=== PATIENT | female | born 1970 | race American Indian/Alaskan Native ===

== ENCOUNTER 2018-11-20 17:13 | Emergency (ER) | payer SELFPAY ==
[2018-11-20 18:12] VITALS: BP 135/88
--- NOTE | 2018-11-20 18:13 | Event Note ---
ED Screening Note Date of service: 11/20/18 Time: 18:12 ED Screening Note: 47 y o f presents with blood and protein in urine and vaginal irritation was at a clinic for drug testing and was given this information This initial assessment/diagnostic orders/clinical plan/treatment(s) is/are subject to change based on patients health status, clinical progression and re- assessment by fellow clinical providers in the ED. Further treatment and workup at subsequent clinical providers discretion. Patient/guardian urged not to elope from the ED as their condition may be serious if not clinically assessed and managed. Initial orders include: ua,upt wt prep, g/c
[2018-11-20 19:13] LABS: HCG Qualitative,Urine Negative (Negative)
[2018-11-20 19:19] LABS: Bilirubin,Urine NEG (Negative); Blood,Urine NEG (Negative); Color,Urine Yellow (Yellow); Mucus,Urine FEW /HPF
[2018-11-20 20:29] LABS: Basophils % (Auto) 0.4 % (0.0-1.8); Eosinophils # (Auto) 0.2 K/mm3 (0.0-0.4); Eosinophils % (Auto) 2.5 % (0.0-4.3); Hematocrit 40.3 % (30.3-42.9); Hemoglobin 13.4 gm/dl (10.1-14.3); Lymphocytes # (Auto) 2.2 K/mm3 (1.2-5.4); Lymphocytes % (Auto) 28.9 % (13.4-35.0); Mean Corpuscular HGB Conc 33 % (30-34); Mean Corpuscular Volume 80 fl (79-97); Monocytes # (Auto) 0.5 K/mm3 (0.0-0.8); Monocytes % (Auto) 6.6 % (0.0-7.3); Platelet Count 236 K/mm3 (140-440); Red Blood Count 5.07 M/mm3 (3.65-5.03); Red Cell Distribution Width 13.9 % (13.2-15.2)
[2018-11-20 20:56] LABS: Alanine Aminotransferase 13 units/L (7-56); Albumin 4.3 g/dL (3.9-5); BUN/Creatinine Ratio 12; Blood Urea Nitrogen 13 mg/dL (7-17); Calcium 9.1 mg/dL (8.4-10.2); Hemolysis Index 10
--- NOTE | 2018-11-20 21:04 | Emergency Department Report ---
ED Female HPI - General Chief complaint: Urogenital-Female Stated complaint: PAP/BLOOD IN URINE/LOW PROTEIN Time Seen by Provider: 11/20/18 18:08 Source: patient Mode of arrival: Ambulatory Limitations: No Limitations - History of Present Illness Initial comments: Patient is a 47-year-old -[place] female with a history of hypertension who presents to the ED with complaint of acute onset persistent vaginal discharge that she describes as yellowish white with vaginal itching for the last 1 week. Patient denies fever, chills, nausea, vomiting, dysuria, vaginal bleeding, dizziness, chest pain, shortness of breath, low back pain, or dyspare unia. MD Complaint: vaginal discharge -: Sudden, week(s) (1) Location: other (vaginal) Radiation: non-radiating Severity: moderate Severity scale (0 -10): 3 Quality: dull, burning Consistency: constant Improves with: none Worsens with: urination Are you Now?: No Last Menstrual Period: 11/04/18 EDC: 08/11/19 Associated Symptoms: denies other symptoms, vaginal discharge. denies: vaginal bleeding, abdominal pain, nausea/vomiting, fever/chills, headaches, loss of appetite, dysuria, hematuria, rash, seizure, shortness of breath, syncope - Related Data Sexually active: Yes : 2 Para: 2 A: 0 Previous Rx's Medication Instructions Recorded Last Taken Type Fluconazole [Diflucan TAB] 150 mg PO ONCE #2 tablet 11/20/18 Unknown Rx metroNIDAZOLE [Flagyl] 500 mg PO Q12HR #14 tab 11/20/18 Unknown Rx Allergies Allergy/AdvReac Type Severity Reaction Status Date / Time benazepril Allergy Swelling Verified 11/20/18 18:08 Penicillins Allergy Unknown Verified 11/20/18 17:17 ED Review of Systems ROS: Stated complaint: PAP/BLOOD IN URINE/LOW PROTEIN Other details as noted in HPI Constitutional: denies: chills, fever Eyes: denies: eye pain, eye discharge, vision change ENT: denies: ear pain, throat pain Respiratory: denies: cough, shortness of breath, wheezing Cardiovascular: denies: chest pain, palpitations Endocrine: no symptoms reported Gastrointestinal: denies: abdominal pain, nausea, diarrhea Genitourinary: frequency, discharge. denies: urgency, dysuria Musculoskeletal: denies: back pain, joint swelling, arthralgia Skin: denies: rash, lesions Neurological: denies: headache, weakness, paresthesias Psychiatric: denies: anxiety, depression Hematological/Lymphatic: denies: easy bleeding, easy bruising ED Past Medical Hx - Past Medical History Previous Medical History?: Yes Hx Hypertension: Yes - Surgical History Past Surgical History?: Yes Additional Surgical History: tubal ligation, utereine ablation - Social History Smoking Status: Never Smoker - Medications Home Medications: Home Medications Medication Instructions Recorded Confirmed Last Taken Type Fluconazole [Diflucan TAB] 150 mg PO ONCE #2 tablet 11/20/18 Unknown Rx metroNIDAZOLE [Flagyl] 500 mg PO Q12HR #14 tab 11/20/18 Unknown Rx ED Physical Exam - General Limitations: No Limitations General appearance: alert, in no apparent distress - Head Head exam: Present: atraumatic, normocephalic, normal inspection - Eye Eye exam: Present: normal appearance, PERRL, EOMI Pupils: Present: normal accommodation - ENT ENT exam: Present: normal exam, normal orophraynx, mucous membranes moist, TM's normal bilaterally, normal external ear exam - Neck Neck exam: Present: normal inspection, full ROM - Respiratory Respiratory exam: Present: normal lung sounds bilaterally. Absent: respiratory distress, wheezes, rales, rhonchi, chest wall tenderness, accessory muscle use, decreased breath sounds - Cardiovascular Cardiovascular Exam: Present: regular rate, normal rhythm, normal heart sounds. Absent: systolic murmur, diastolic murmur, rubs, gallop - GI/Abdominal GI/Abdominal exam: Present: soft, normal bowel sounds. Absent: tenderness, guarding, rebound, hyperactive bowel sounds, hypoactive bowel sounds, organomegaly - Bi-manual exam: Present: other (patient declined pelvic exam. Patient self swabbed for Wet Prep) - Extremities Exam Extremities exam: Present: normal inspection, full ROM, normal capillary refill - Back Exam Back exam: Present: normal inspection, full ROM - Neurological Exam Neurological exam: Present: alert, oriented X3, CN II-XII intact, normal gait, reflexes normal - Psychiatric Psychiatric exam: Present: normal affect, normal mood - Skin Skin exam: Present: warm, dry, intact, normal color. Absent: rash ED Course Vital Signs 11/20/18 18:08 Temperature 98 F Pulse Rate 92 H Respiratory 18 Rate Blood Pressure 135/88 [Right] O2 Sat by Pulse 99 Oximetry - Reevaluation(s) Reevaluation #1: 11/20/18 21:04 This is a 47-year-old Afro-[place] female who presented to the ED with acute onset persistent vaginal discharge and vaginal itching for one week. In the ED, patient is alert and oriented 3 and is not in distress with normal vital signs. Lab test results were reviewed and are all nonactionable. Wet prep shows significant yeast and Gardnerella vaginalis consistent with candidal vaginitis and bacterial vaginosis. Patient will discharge home on Flagyl and Diflucan and advised to follow-up with [facility] to establish care in 7-10 days. Patient was advised to return to the ED immediately if symptoms get worse. ED Medical Decision Making - Lab Data Result diagrams: 11/20/18 20:03 11/20/18 20:03 - Medical Decision Making This is a 47-year-old Afro-[place] female who presented to the ED with acute onset persistent vaginal discharge and vaginal itching for one week. In the ED, patient is alert and oriented 3 and is not in distress with normal vital signs. Lab test results were reviewed and are all nonactionable. Wet prep shows significant yeast and Gardnerella vaginalis consistent with candidal vaginitis and bacterial vaginosis. Patient will discharge home on Flagyl and Diflucan and advised to follow-up with [facility] to establish care in 7-10 days. Patient was advised to return to the ED immediately if symptoms get worse. All questions the patient had were answered appropriately and the patient was satisfied with answers. - Differential Diagnosis Acute UTI; Bacterial Vaginosis; Candidal vaginitis; Trichomonas infection Critical care attestation.: If time is entered above; I have spent that time in minutes in the direct care of this critically ill patient, excluding procedure time. ED Disposition Clinical Impression: Bacterial vaginosis, Candidal vaginitis Disposition: - TO HOME OR SELFCARE Is pt being admited?: No Does the pt Need Aspirin: No Condition: Stable Instructions: Bacterial Vaginosis (ED), Vulvovaginal Candidiasis (ED) Additional Instructions: Take medication with food, drink plenty of fluids and follow-up with your primary care physician in 7-10 days for reevaluation. Return to the ED immediately if symptoms get worse. Prescriptions: Fluconazole [Diflucan TAB] 150 mg PO ONCE #2 tablet metroNIDAZOLE [Flagyl] 500 mg PO Q12HR #14 tab Referrals: [facility] [Outside] - 3-5 Days Forms: STI Treatment and Prevention Time of Disposition: 21:00 Print Language: DANISH
== END 2018-11-20 21:15 | disposition home or self-care (01) ==
LOC: ED 17:13
DX: B37.3 Candidiasis of vulva and vagina (principal); I10 Essential (primary) hypertension; Z98.51 Tubal ligation status; Z79.899 Other long term (current) drug therapy; Z88.8 Allergy status to other drugs, medicaments and biological substances; Z88.0 Allergy status to penicillin
CPT/HCPCS: 36415; 80053; 81001; 81025; 85025; 87210